=== PATIENT | male | born 1945 | race Caucasian/White ===

== ENCOUNTER 2020-08-14 09:54 | Emergency (ER) | payer MEDICARE, OTHER ==
[~2020-08-14] VITALS: Ht 193 cm; Wt 134.5 kg
[2020-08-14] MEDS ORDERED: IV NORMAL SALINE 1,000ML 1,000 ML IV ONE (10:15)
--- NOTE | 2020-08-14 10:22 | PHYS DOC ---
General Adult EDM: Chief Complaint: ABDOMINAL PAIN HPI: HPI: 75-year-old male presents with abdominal pain. The patient states that he has had diarrhea every day for the last 1 week. He is also had some lower abdominal discomfort. He does not really call it pain. It is a crampy sensation. His diarrhea is at least once a day sometimes twice. Is very watery. He has not had a normal bowel movement he denies fever or chills. He did start Trulicity recently, but has not had an injection in over a week. He denies nausea, vomiting fever, or chills. He went to urgent care yesterday was diagnosed with UTI. They placed him on ciprofloxacin 500 daily. He has taken 1 pill so far. Review of Systems: Review of Systems: Constitutional: Denies fever or chills Eyes: Denies change in visual acuity HENT: Denies nasal congestion or sore throat Respiratory: Denies cough or shortness of breath Cardiovascular: Denies chest pain or edema GI: Lower abdominal pain, diarrhea : Denies dysuria Musculoskeletal: Denies back pain or joint pain Integument: Denies rash Neurologic: Denies headache, focal weakness or sensory changes Endocrine: Denies polyuria or polydipsia Lymphatic: Denies swollen glands Psychiatric: Denies depression or anxiety Current Medications: Current Meds: Current Medications Medications (Trade) Dose Ordered Sig/Estevan Start Time Stop Time Status Last Admin Dose Admin Sodium Chloride 1,000 ml @ 1,000 mls/hr 1X ONCE 08/14/20 10:15 08/14/20 11:14 UNV Allergies: Allergies: Allergies Coded Allergies Type Severity Reaction Last Updated Verified No Known Drug Allergies 08/14/20 No Physical Exam: PE: Constitutional: Well developed, well nourished, morbidly obese, no acute distress, non-toxic appearance. [] HENT: Normocephalic, atraumatic, bilateral external ears normal, oropharynx moist, no oral exudates, nose normal. [] Eyes: PERRLA, EOMI, conjunctiva normal, no discharge. [] Neck: Normal range of motion, no tenderness, supple, no stridor. [] Cardiovascular:Heart rate regular rhythm, no murmur [] Lungs & Thorax: Bilateral breath sounds clear to auscultation [] Abdomen: Bowel sounds normal, rotund, soft, no tenderness, no masses, no pulsatile masses. [] Skin: Warm, dry, no erythema, no rash. [] Back: No tenderness, no CVA tenderness. [] Extremities: No tenderness, no cyanosis, no clubbing, ROM intact, no edema. [] Neurologic: Alert and oriented X 3, normal motor function, normal sensory function, no focal deficits noted. [] Psychologic: Affect normal, judgement normal, mood normal. [] EKG: EKG: [] Radiology/Procedures: Radiology/Procedures: [] Impressions: EXAM: Abdomen and pelvis CT with intravenous contrast. HISTORY: Left lower quadrant pain. TECHNIQUE: Computed tomographic images of the abdomen and pelvis were obtained with contrast. Multiplanar reformatting was performed. *One or more of the following individualized dose reduction techniques were utilized for this examination: 1. Automated exposure control. 2. Adjustment of the mA and/or kV according to patient size. 3. Use of iterative reconstruction technique. COMPARISON: None. FINDINGS: Evaluation of the lower thorax demonstrates posterior dependent and basilar atelectasis. There is no infiltrate. There is coronary artery atherosclerosis. No hepatic lesion is seen. The gallbladder is absent. The pancreas, spleen and adrenal glands are unremarkable. There is a simple appearing cyst within the lower pole the right kidney measuring 1.5 cm. There is no hydronephrosis. There is no appendicitis. There is no bowel obstruction. There is distal colonic diverticulosis. There is no diverticulitis. There is bladder wall thickening. The prostate is enlarged. There are small fat-containing inguinal hernias. There is no aortic aneurysm. There is no lymphadenopathy. There is evidence of mesh repair of a ventral abdominal hernia. There is no suspicious osseous lesion. There are degenerative changes throughout the spine. This contributes to central canal stenosis primarily at L2-L3. IMPRESSION: 1. Distal colonic diverticulosis. 2. Urinary bladder wall thickening. This may be due to chronic outlet obstruction given the presence of an enlarged prostate. Correlate with urinalysis to exclude cystitis. 3. Small fat-containing inguinal hernias and findings consistent with prior vent ral abdominal wall hernia repair. Electronically signed by: Radha Baires MD (08/14/2020 11:52 AM) [id number] DICTATED AND SIGNED BY: RADHA BAIRES MD DATE: 08/14/20 [id number] CC: NEO WOODALL DO; NON,STAFF ~MTH0 0 Heart Score: C/O Chest Pain: N/A Risk Factors: Risk Factors: DM, Current or recent (<one month) smoker, HTN, HLP, family history of CAD, obesity. Risk Scores: Score 0 - 3: 2.5% MACE over next 6 weeks - Discharge Home Score 4 - 6: 20.3% MACE over next 6 weeks - Admit for Clinical Observation Score 7 - 10: 72.7% MACE over next 6 weeks - Early Invasive Strategies Course & Med Decision Making: Course & Med Decision Making Pertinent Labs and Imaging studies reviewed. (See chart for details) The patient's labs are unremarkable. CT of the abdomen pelvis does not show any acute findings. There are some chronic findings. See official report for more details. This could be related to his recent addition of Trulicity. He is only having one episode a day. I have advised supportive care at this time. His blood pressure has increased while in the emergency room. I will give him 0.1 of clonidine for this. I suspect this is related to whitecoat hypertension. He is stable for discharge at this time. [] Dragon Disclaimer: Dragon Disclaimer: This electronic medical record was generated, in whole or in part, using a voice recognition dictation system. Departure Departure: Impression: Primary Impression: Abdominal pain Qualified Codes: R10.84 - Generalized abdominal pain Additional Impression: Diarrhea Disposition: HOME / SELF CARE / HOMELESS Condition: STABLE Referrals: NON,STAFF (PCP) Patient Instructions: Diarrhea, [id number] NEO WOODALL DO August 14, 2020 10:21
[2020-08-14] MEDS ORDERED: IOHEXOL 300 MG/ML 75 ML VIAL. IV ONE (10:30)
[2020-08-14 10:57] LABS: BASO % 1 % (0-3); EOS % 1 % (0-3); HEMATOCRIT 40.7 % (39.0-53.0); HEMOGLOBIN 13.5 g/dL (13.0-17.5); LYMPH # 0.9 x10^3/uL (1.0-4.8); LYMPH % 14 % (24-48); MEAN CORPUSCULAR HEMOGLOBIN 30 pg (25-35); MEAN CORPUSCULAR HGB CONC 33 g/dL (31-37); MEAN CORPUSCULAR VOLUME 89 fL (79-100); MONO # 0.6 x10^3/uL (0.0-1.1); MONO % 10 % (0-9); NEUT # 4.5 x10^3uL (1.8-7.7); NEUT % 75 % (31-73); PLATELET COUNT 188 x10^3/uL (140-400); RED BLOOD COUNT 4.58 x10^6/uL (4.30-5.70); RED CELL DISTRIBUTION WIDTH 14.3 % (11.5-14.5); WHITE BLOOD COUNT 6.1 x10^3/uL (4.0-11.0)
[2020-08-14 11:21] LABS: CALCIUM 9.2 mg/dL (8.5-10.1); CREATININE 1.1 mg/dL (0.7-1.3); GFR 65.3; POTASSIUM 3.3 mmol/L (3.5-5.1)
[2020-08-14 11:29] LABS: ALBUMIN 3.4 g/dL (3.4-5.0); TOTAL PROTEIN 6.8 g/dL (6.4-8.2)
--- NOTE | 2020-08-14 11:54 | RAD ---
EXAM: Abdomen and pelvis CT with intravenous contrast. HISTORY: Left lower quadrant pain. TECHNIQUE: Computed tomographic images of the abdomen and pelvis were obtained with contrast. Multipl joy reformatting was performed. *One or more of the following individualized dose reduction techniques were utilized for this examina tion: 1. Automated exposure control. 2. Adjustment of the mA and/or kV according to patient size. 3. Use of iterative reconstruction technique. COMPARISON: None. FINDINGS: Evaluation of the lower thorax demonstrates posterior dependent and basilar atelectasis. Th ere is no infiltrate. There is coronary artery atherosclerosis. No hepatic lesion is seen. The gallbl adder is absent. The pancreas, spleen and adrenal glands are unremarkable. There is a simple appearin g cyst within the lower pole the right kidney measuring 1.5 cm. There is no hydronephrosis. There is no appendicitis. There is no bowel obstruction. There is distal colonic diverticulosis. Ther e is no diverticulitis. There is bladder wall thickening. The prostate is enlarged. There are small f at-containing inguinal hernias. There is no aortic aneurysm. There is no lymphadenopathy. There is ev idence of mesh repair of a ventral abdominal hernia. There is no suspicious osseous lesion. There are degenerative changes throughout the spine. This contributes to central canal stenosis primarily at L 2-L3. IMPRESSION: 1. Distal colonic diverticulosis. 2. Urinary bladder wall thickening. This may be due to chronic outlet obstruction given the presence of an enlarged prostate. Correlate with urinalysis to exclude cystitis. 3. Small fat-containing inguinal hernias and findings consistent with prior ventral abdominal wall he rnia repair. Electronically signed by: Radha Baires MD (08/14/2020 11:52 AM) [id number]
[2020-08-14 12:22] LABS: BILIRUBIN,URINE NEG (NEG); CLARITY,URINE CLEAR; COLOR,URINE YELLOW; GLUCOSE,URINE NEG (NEG); NITRITE,URINE NEG (NEG)
[2020-08-14 12:23] LABS: BACTERIA,URINE 0 /HPF (0-FEW); RBC,URINE RARE /HPF (0-2); SQUAMOUS EPITHELIAL CELL,UR OCC /LPF
[2020-08-14 12:24] LABS: HYALINE CASTS, URINE OCC /HPF
[2020-08-14] MEDS ORDERED: cloNIDine HCL 0.1 MG TABLET PO ONE (13:00)
[2020-08-14 13:05] VITALS: BP 179/95
== END 2020-08-14 13:10 | disposition home or self-care (01) ==
LOC: ER 09:54
DX: R10.32 Left lower quadrant pain (principal); R19.7 Diarrhea, unspecified
CPT/HCPCS: 36415; 74177; 80053; 81001; 85025; 87086; 96360; 96361; 99285; J7030; Q9967